=== PATIENT | male | born 1945 | race Two or more races ===

== ENCOUNTER 2022-01-04 22:06 | Inpatient (IN) | payer MEDICARE, MEDICAID ==
[~2022-01-04] VITALS: Ht 172.7 cm; Wt 61.9 kg
[2022-01-04] MEDS ORDERED: VANCOMYCIN 1G PREMIX 200 ML IV ONE (22:45)
[2022-01-04] MEDS ORDERED: SODIUM CHLORIDE 0.9% 1000ML BAG (SEPSIS BOLUS) IV ONE (22:45)
[2022-01-04] MEDS ORDERED: ACETAMINOPHEN 160MG/5ML UDC GT ONE (22:45)
[2022-01-04] MEDS ORDERED: PIPERACILLIN/TAZ 3.375G PREMIX 50 ML IV ONE (22:45)
[2022-01-04 23:12] LABS: HEMATOCRIT. 34.6 % (42.0-52.0); HEMOGLOBIN. 11.4 g/dL (14.0-18.0); MEAN CORPUSCULAR HEMOGLOBIN 29.9 pg (28.0-32.0); MEAN PLATELET VOLUME 9.2 fl (7.4-10.4); PLATELET 210 x1000/uL (130-400); RED CELL DISTRIBUTION WIDTH 15.6 % (11.6-14.6)
[2022-01-04 23:13] LABS: INR 1.1; PROTHROMBIN TIME 12.1 sec (9.6-11.0)
[2022-01-04 23:17] LABS: CHLORIDE 95 mEq/L (98-107)
[2022-01-04 23:26] LABS: CREATINE KINASE 304 IU/L (39-308)
[2022-01-04] MEDS ORDERED: ACETAMINOPHEN 650MG/20.3ML UDC GT NR (23:30)
[2022-01-05] VITALS (42 sets, daily range): BP systolic 64–130; BP diastolic 26–85
[2022-01-05] MEDS ORDERED: DILTIAZEM HCL 5MG/ML 5ML VIAL IV NR ×2 (00:15→01:15)
[2022-01-05 00:21] LABS: CLARITY URINE CLOUDY (CLEAR); COLOR URINE DARK YELLOW (YELLOW); KETONES URINE TRACE (NEGATIVE); LEUKOCYTE ESTERASE URINE 3+ (NEGATIVE); NITRITE URINE POSITIVE (NEGATIVE); OCCULT BLOOD URINE 1+ (NEGATIVE); PROTEIN URINE 1+ (NEGATIVE); SPECIFIC GRAVITY URINE 1.022 (1.005-1.030)
[2022-01-05] MEDS ORDERED: ONDANSETRON HCL 4MG/2ML INJ IV PRN (01:45)
[2022-01-05] MEDS ORDERED: ACETAMINOPHEN 650MG SUPP PR PRN (01:45)
[2022-01-05] MEDS: DEXT 5%/0.45% NACL 1000ML 1,000 ML IV SCH ×3 (01:45→21:45)
[2022-01-05] MEDS ORDERED: PHENYLEPHRINE 50 MG in DEXT 5% WATER 245 ML IV PRN (01:45)
[2022-01-05] MEDS ORDERED: PIPERACILLIN/TAZOBACTAM 3.375 G in DEXTROSE 5% WATER 50 ML IV SCH (01:45)
[2022-01-05 03:08] LABS: PLATELET ESTIMATE NORMAL
[2022-01-05] MEDS ORDERED: PIPERACILLIN/TAZOBACTAM 3.375G in DEXT 5% WATER 50ML IV SCH (06:00)
[2022-01-05] MEDS ORDERED: PIPERACILLIN/TAZ 3.375G PREMIX 50 ML IV NR (06:45)
[2022-01-05] MEDS ORDERED: DEXTROSE 50% WATER 50ML SYRINGE IV PRN (07:30)
[2022-01-05] MEDS ORDERED: DIGOXIN 500MCG/2ML AMP IV NR ×3 (10:15→13:00)
[2022-01-05] MEDS ORDERED: BLOOD SUGAR DIAGNOSTIC STRIP TEST SCH (11:30)
[2022-01-05] MEDS ORDERED: INSULIN LISPRO 100 UNITS/ML SUBCUT SCH (12:00)
[2022-01-05] MEDS: ENOXAPARIN 60MG/0.6ML SYR SUBCUT SCH (12:22)
[2022-01-05] MEDS: DILTIAZEM 125MG/125ML PMX 100 ML IV NR ×2 (12:43→22:03)
[2022-01-05] MEDS ORDERED: DIGOXIN 500MCG/2ML AMP IV PRN (13:00)
[2022-01-05] MEDS: PIPERACILLIN/TAZOBACTAM 3.375G in DEXT 5% WATER 50ML IV SCH ×4 (14:00→22:00)
[2022-01-05] MEDS ORDERED: NALOXONE HCL 0.4MG/ML VIAL IV PRN (16:00)
[2022-01-05] MEDS ORDERED: BRIM10DR2 EACHEYE (16:33)
[2022-01-05] MEDS ORDERED: FAMO-135 PO (16:33)
[2022-01-05] MEDS ORDERED: IPRA3AMP31 NEB (16:33)
[2022-01-05] MEDS ORDERED: HEPA100D37 SUBCUT (16:33)
[2022-01-05] MEDS ORDERED: DOCU-150 MT (16:33)
[2022-01-05] MEDS ORDERED: ASCO500C18 PO (16:33)
[2022-01-05] MEDS ORDERED: LISI2.5T47 MT (16:33)
[2022-01-05] MEDS ORDERED: ONDA4TAB50 MT (16:33)
[2022-01-05] MEDS ORDERED: CLON0.5T23 MT (16:33)
[2022-01-05] MEDS ORDERED: CHOL400D7 PEG (16:33)
[2022-01-05] MEDS ORDERED: QUET200T MT (16:33)
[2022-01-05] MEDS ORDERED: DILT60TA35 PO (16:33)
[2022-01-05] MEDS ORDERED: ZINC220C6 (16:33)
[2022-01-05] MEDS: BLOOD SUGAR DIAGNOSTIC STRIP TEST SCH (18:00)
[2022-01-05] MEDS: INSULIN LISPRO 100 UNITS/ML SUBCUT SCH (18:58)
[2022-01-05] MEDS: VANCOMYCIN 750MG PREMIX 150 ML IV SCH (19:22)
[2022-01-06] VITALS (96 sets, daily range): BP systolic 87–137; BP diastolic 43–99
[2022-01-06] MEDS: BLOOD SUGAR DIAGNOSTIC STRIP TEST SCH ×5 (00:38→23:48)
[2022-01-06] MEDS: ENOXAPARIN 60MG/0.6ML SYR SUBCUT SCH ×3 (00:56→23:48)
[2022-01-06] MEDS: VANCOMYCIN 750MG PREMIX 150 ML IV SCH ×2 (01:59→02:45)
[2022-01-06 05:31] LABS: HEMATOCRIT. 33.6 % (42.0-52.0); HEMOGLOBIN. 11.2 g/dL (14.0-18.0); MEAN CORPUSCULAR HEMOGLOBIN 30.3 pg (28.0-32.0); MEAN CORPUSCULAR VOLUME 90.7 fL (80.0-94.0); MEAN PLATELET VOLUME 9.3 fl (7.4-10.4); PLATELET 236 x1000/uL (130-400); RED CELL DISTRIBUTION WIDTH 15.5 % (11.6-14.6)
[2022-01-06] MEDS: INSULIN LISPRO 100 UNITS/ML SUBCUT SCH ×5 (05:45→23:46)
[2022-01-06 05:52] LABS: PHOSPHORUS 1.9 mg/dL (2.5-4.9)
[2022-01-06] MEDS: PIPERACILLIN/TAZOBACTAM 3.375G in DEXT 5% WATER 50ML IV SCH ×3 (05:54→21:05)
[2022-01-06 05:55] LABS: CHLORIDE 107 mEq/L (98-107)
[2022-01-06 06:24] LABS: PLATELET ESTIMATE NORMAL
[2022-01-06] MEDS: DILTIAZEM 125MG/125ML PMX 100 ML IV PRN ×2 (08:14→16:42)
[2022-01-06] MEDS: DEXT 5%/0.45% NACL 1000ML 1,000 ML IV SCH ×2 (08:14→16:45)
[2022-01-06] MEDS ORDERED: LIDOCAINE HCL 1% 30ML VIAL (10MG/ML) ONE (08:41)
[2022-01-06] MEDS: PHENYLEPHRINE 100 MG in DEXT 5% WATER 240 ML IV PRN (09:24)
[2022-01-06] MEDS: DILTIAZEM HCL 30MG TABLET PO SCH ×3 (12:24→23:47)
[2022-01-06] MEDS: VANCOMYCIN 1000MG/20ML ORAL SOLN PO SCH ×2 (15:05→23:47)
[2022-01-06] MEDS: PANTOPRAZOLE SODIUM 40 MG/VIAL IV SCH (21:05)
[2022-01-07] VITALS (99 sets, daily range): BP systolic 41–137; BP diastolic 22–96
[2022-01-07] MEDS: DEXT 5%/0.45% NACL 1000ML 1,000 ML IV SCH ×2 (03:47→11:23)
[2022-01-07] MEDS: MORPHINE SULFATE 2 MG/ML CPJ (NOT FOR IM USE) IV PRN (04:45)
[2022-01-07] MEDS: PIPERACILLIN/TAZOBACTAM 3.375G in DEXT 5% WATER 50ML IV SCH ×3 (05:05→21:02)
[2022-01-07] MEDS: DILTIAZEM HCL 30MG TABLET PO SCH ×4 (05:06→23:14)
[2022-01-07] MEDS: VANCOMYCIN 1000MG/20ML ORAL SOLN PO SCH ×4 (05:07→23:13)
[2022-01-07] MEDS: INSULIN LISPRO 100 UNITS/ML SUBCUT SCH ×4 (05:22→23:15)
[2022-01-07] MEDS: BLOOD SUGAR DIAGNOSTIC STRIP TEST SCH ×4 (05:22→23:15)
[2022-01-07 06:00] LABS: HEMATOCRIT. 31.8 % (42.0-52.0); HEMOGLOBIN. 10.7 g/dL (14.0-18.0); MEAN CORPUSCULAR HEMOGLOBIN 30.6 pg (28.0-32.0); MEAN CORPUSCULAR VOLUME 90.5 fL (80.0-94.0); MEAN PLATELET VOLUME 8.1 fl (7.4-10.4); PLATELET 235 x1000/uL (130-400); RED BLOOD CELL COUNT 3.51 mill/uL (4.7-6.1); RED CELL DISTRIBUTION WIDTH 15.6 % (11.6-14.6)
[2022-01-07 06:04] LABS: CHLORIDE 106 mEq/L (98-107)
[2022-01-07] MEDS ORDERED: POTASSIUM CHLORIDE 20MEQ/PACKET PO NR (06:30)
[2022-01-07] MEDS: PHENYLEPHRINE 100 MG in DEXT 5% WATER 240 ML IV PRN (07:57)
[2022-01-07] MEDS: DILTIAZEM 125MG/125ML PMX 100 ML IV PRN ×2 (07:58→18:07)
[2022-01-07] MEDS: PANTOPRAZOLE SODIUM 40 MG/VIAL IV SCH ×2 (08:13→21:02)
[2022-01-07] MEDS: CITRIC ACID/SODIUM CITRATE SOLN 15ML UDC PO SCH ×3 (08:13→18:08)
[2022-01-07 08:43] LABS: PLATELET ESTIMATE NORMAL
[2022-01-07] MEDS: METOCLOPRAMIDE HCL 10MG/2ML VIAL IV SCH ×3 (11:23→23:13)
[2022-01-07] MEDS: ENOXAPARIN 60MG/0.6ML SYR SUBCUT SCH ×2 (11:28→23:14)
[2022-01-08] VITALS (70 sets, daily range): BP systolic 70–152; BP diastolic 16–91
[2022-01-08] MEDS: DEXT 5%/0.45% NACL 1000ML 1,000 ML IV SCH (00:44)
[2022-01-08] MEDS: VANCOMYCIN 1000MG/20ML ORAL SOLN PO SCH ×3 (05:01→17:38)
[2022-01-08] MEDS: DILTIAZEM HCL 30MG TABLET PO SCH (05:01)
[2022-01-08 05:03] LABS: HEMATOCRIT. 31.4 % (42.0-52.0); HEMOGLOBIN. 10.6 g/dL (14.0-18.0); MEAN CORPUSCULAR HEMOGLOBIN 30.2 pg (28.0-32.0); MEAN CORPUSCULAR VOLUME 89.7 fL (80.0-94.0); MEAN PLATELET VOLUME 7.9 fl (7.4-10.4); PLATELET 232 x1000/uL (130-400); RED CELL DISTRIBUTION WIDTH 15.7 % (11.6-14.6)
[2022-01-08] MEDS: PIPERACILLIN/TAZOBACTAM 3.375G in DEXT 5% WATER 50ML IV SCH ×3 (05:03→21:18)
[2022-01-08] MEDS: METOCLOPRAMIDE HCL 10MG/2ML VIAL IV SCH ×3 (05:03→17:37)
[2022-01-08 05:19] LABS: CHLORIDE 106 mEq/L (98-107)
[2022-01-08 05:40] LABS: PHOSPHORUS 0.6 mg/dL (2.5-4.9)
[2022-01-08] MEDS: INSULIN LISPRO 100 UNITS/ML SUBCUT SCH ×3 (06:00→17:43)
[2022-01-08] MEDS: BLOOD SUGAR DIAGNOSTIC STRIP TEST SCH ×3 (06:02→17:44)
[2022-01-08] MEDS ORDERED: POTASSIUM CHLORIDE 20MEQ/PACKET PO NR (06:30)
[2022-01-08] MEDS: DEXT 5%/0.9% NACL 1,000 ML IV SCH (06:49)
[2022-01-08 07:07] LABS: PLATELET ESTIMATE NORMAL
[2022-01-08] MEDS ORDERED: POTASSIUM PHOS,M-BASIC-D-BASIC 30 MMOL in DEXT 5% WATER 500 ML IV NR (08:00)
[2022-01-08] MEDS: PANTOPRAZOLE SODIUM 40 MG/VIAL IV SCH ×2 (08:16→21:16)
[2022-01-08] MEDS: CITRIC ACID/SODIUM CITRATE SOLN 15ML UDC PO SCH ×3 (08:16→17:37)
[2022-01-08] MEDS ORDERED: DILTIAZEM HCL 30MG TABLET PO NR (08:45)
[2022-01-08] MEDS: ENOXAPARIN 60MG/0.6ML SYR SUBCUT SCH ×2 (09:51→21:17)
[2022-01-08 10:54] LABS: BG BASE EXCESS -4.8 mmol/L (-2.0-2.0); BG CARBOXYHEMOGLOBIN 0.4 % (0.5-1.5); BG DEOXYHEMOGLOBIN 10.6 % (0.0-5.0); BG HCO3 ACT 18.4 mmol/L (22.0-26.0); BG METHEMOGLOBIN 0.1 % (0.0-1.5); BG OXYGEN SATURATION 89.3 % (92.0-98.5); BG OXYHEMOGLOBIN 88.9 % (94.0-97.0); BG PCO2 28.7 mmHg (35.0-45.0); BG PH 7.424 (7.350-7.450); BG PO2 51.6 mmHg (75.0-100.0); BG SAMPLE SITE RIGHT RADIAL; BG TOTAL HEMOGLOBIN 12.2 g/dL (12.0-18.0); BG VENT MODE ROOM AIR
[2022-01-08] MEDS ORDERED: ENOXAPARIN 60MG/0.6ML SYR SUBCUT SCH (11:30)
[2022-01-08] MEDS: DILTIAZEM HCL 60MG TABLET PO SCH ×2 (12:26→17:37)
[2022-01-08] MEDS ORDERED: [UNRECOGNIZED DRUG - REMARK] XX SCH (14:00)
[2022-01-08] MEDS: METHYLPREDNISOLONE SOD SUCC 40 MG/ML VIAL IV SCH ×2 (14:07→21:16)
[2022-01-08] MEDS: IPRATROPIUM BROMIDE (0.02%) 0.5MG/2.5ML NEB HHN SCH ×2 (14:29→18:00)
[2022-01-08] MEDS: HALOPERIDOL LACTATE 5MG/ML VIAL IM PRN (18:03)
[2022-01-08] MEDS: MORPHINE SULFATE 2 MG/ML CPJ (NOT FOR IM USE) IV PRN (19:56)
[2022-01-08] MEDS: LORAZEPAM 0.5MG TABLET PO PRN (20:37)
[2022-01-08] MEDS ORDERED: FAMOTIDINE 20MG TABLET PO SCH (21:00)
[2022-01-09] VITALS (14 sets, daily range): BP systolic 80–181; BP diastolic 47–105
[2022-01-09] MEDS: DEXT 5%/0.9% NACL 1,000 ML IV SCH ×2 (00:04→15:02)
[2022-01-09] MEDS: VANCOMYCIN 1000MG/20ML ORAL SOLN PO SCH ×4 (00:07→18:56)
[2022-01-09] MEDS: METOCLOPRAMIDE HCL 10MG/2ML VIAL IV SCH ×4 (00:07→16:17)
[2022-01-09] MEDS: BLOOD SUGAR DIAGNOSTIC STRIP TEST SCH ×4 (00:19→18:38)
[2022-01-09] MEDS: DILTIAZEM HCL 60MG TABLET PO SCH ×4 (00:20→18:56)
[2022-01-09] MEDS: PIPERACILLIN/TAZOBACTAM 3.375G in DEXT 5% WATER 50ML IV SCH ×3 (06:14→22:10)
[2022-01-09] MEDS: METHYLPREDNISOLONE SOD SUCC 40 MG/ML VIAL IV SCH ×2 (06:15→15:02)
[2022-01-09] MEDS: INSULIN LISPRO 100 UNITS/ML SUBCUT SCH ×4 (06:18→18:57)
[2022-01-09 06:24] LABS: BASOPHILS % 0.2 % (0.0-2.0); EOSINOPHILS % 0.1 % (0.0-5.0); HEMATOCRIT. 33.2 % (42.0-52.0); HEMOGLOBIN. 11.1 g/dL (14.0-18.0); LYMPHOCYTES % 7.7 % (20.0-50.0); MEAN CORPUSCULAR HEMOGLOBIN 30.7 pg (28.0-32.0); MEAN CORPUSCULAR VOLUME 92.2 fL (80.0-94.0); MEAN PLATELET VOLUME 8.6 fl (7.4-10.4); MONOCYTES % 2.4 % (2.0-8.0); NEUTROPHILS % 89.6 % (40.0-76.0); PLATELET 226 x1000/uL (130-400); RED CELL DISTRIBUTION WIDTH 16.1 % (11.6-14.6)
[2022-01-09 06:32] LABS: CHLORIDE 106 mEq/L (98-107)
[2022-01-09 06:36] LABS: PHOSPHORUS 1.8 mg/dL (2.5-4.9)
[2022-01-09] MEDS: IPRATROPIUM BROMIDE (0.02%) 0.5MG/2.5ML NEB HHN SCH ×4 (08:45→20:47)
[2022-01-09] MEDS: LORAZEPAM 0.5MG TABLET PO PRN ×2 (08:47→16:17)
[2022-01-09] MEDS: CITRIC ACID/SODIUM CITRATE SOLN 15ML UDC PO SCH ×3 (08:47→18:55)
[2022-01-09] MEDS: PANTOPRAZOLE SODIUM 40 MG/VIAL IV SCH ×2 (08:47→21:58)
[2022-01-09] MEDS: ENOXAPARIN 60MG/0.6ML SYR SUBCUT SCH (08:48)
[2022-01-09] MEDS: HALOPERIDOL LACTATE 5MG/ML VIAL IM PRN (09:19)
[2022-01-09] MEDS ORDERED: SODIUM PHOS,M-BASIC-D-BASIC 20 MM in DEXT 5% WATER 243.3333 ML IV NR (13:00)
[2022-01-09] MEDS: ENOXAPARIN 80MG/0.8ML SYR SUBCUT SCH (21:58)
[2022-01-09] MEDS ORDERED: FUROSEMIDE 40MG/4ML VIAL IVP NR (22:15)
[2022-01-09] MEDS ORDERED: DIGOXIN 500MCG/2ML AMP IV NR (22:15)
[2022-01-10] VITALS (10 sets, daily range): BP systolic 99–156; BP diastolic 60–87
[2022-01-10] MEDS: METOCLOPRAMIDE HCL 10MG/2ML VIAL IV SCH ×4 (00:30→17:20)
[2022-01-10] MEDS: VANCOMYCIN 1000MG/20ML ORAL SOLN PO SCH ×4 (00:30→17:20)
[2022-01-10] MEDS: DILTIAZEM HCL 60MG TABLET PO SCH ×4 (00:30→17:19)
[2022-01-10] MEDS: BLOOD SUGAR DIAGNOSTIC STRIP TEST SCH ×4 (00:43→17:20)
[2022-01-10] MEDS ORDERED: METHYLPREDNISOLONE SOD SUCC 40 MG/ML VIAL IV SCH (01:00)
[2022-01-10] MEDS: INSULIN LISPRO 100 UNITS/ML SUBCUT SCH ×4 (01:00→17:21)
[2022-01-10] MEDS: IPRATROPIUM BROMIDE (0.02%) 0.5MG/2.5ML NEB HHN SCH ×4 (01:02→20:05)
[2022-01-10] MEDS: PIPERACILLIN/TAZOBACTAM 3.375G in DEXT 5% WATER 50ML IV SCH ×3 (05:35→22:13)
[2022-01-10 05:59] LABS: HEMATOCRIT. 32.7 % (42.0-52.0); HEMOGLOBIN. 10.9 g/dL (14.0-18.0); MEAN CORPUSCULAR HEMOGLOBIN 30.6 pg (28.0-32.0); MEAN CORPUSCULAR VOLUME 91.5 fL (80.0-94.0); MEAN PLATELET VOLUME 8.6 fl (7.4-10.4); PLATELET 257 x1000/uL (130-400); RED BLOOD CELL COUNT 3.57 mill/uL (4.7-6.1); RED CELL DISTRIBUTION WIDTH 15.7 % (11.6-14.6)
[2022-01-10 06:17] LABS: CHLORIDE 103 mEq/L (98-107)
[2022-01-10 06:26] LABS: PHOSPHORUS 1.6 mg/dL (2.5-4.9)
[2022-01-10] MEDS ORDERED: POTASSIUM CHLORIDE INJ 40 MEQ in DEXT 5% WATER 250 ML IV ONE (06:30)
[2022-01-10] MEDS: KCL 20MEQ/100ML X 2 FOR TOTAL KCL 40MEQ/200ML IV SCH ×4 (07:30→12:30)
[2022-01-10 07:46] LABS: PLATELET ESTIMATE NORMAL
[2022-01-10] MEDS: CITRIC ACID/SODIUM CITRATE SOLN 15ML UDC PO SCH ×3 (09:45→17:14)
[2022-01-10] MEDS: PANTOPRAZOLE SODIUM 40 MG/VIAL IV SCH ×2 (09:45→17:20)
[2022-01-10] MEDS: ENOXAPARIN 80MG/0.8ML SYR SUBCUT SCH (09:46)
[2022-01-10] MEDS ORDERED: POTASSIUM PHOS,M-BASIC-D-BASIC 30 MMOL in DEXT 5% WATER 500 ML IV NR (12:00)
[2022-01-10] MEDS: MAGNESIUM 2 G PREMIX 50 ML IV NR ×2 (12:30→17:14)
[2022-01-10] MEDS: ASPIRIN 81MG EC TABLET PO SCH (12:39)
[2022-01-10] MEDS: QUETIAPINE FUMARATE 25MG TABLET PO SCH (22:13)
[2022-01-11] VITALS (15 sets, daily range): BP systolic 85–159; BP diastolic 46–93
[2022-01-11] MEDS: METOCLOPRAMIDE HCL 10MG/2ML VIAL IV SCH ×5 (00:57→23:46)
[2022-01-11] MEDS: VANCOMYCIN 1000MG/20ML ORAL SOLN PO SCH ×5 (00:59→23:48)
[2022-01-11] MEDS: BLOOD SUGAR DIAGNOSTIC STRIP TEST SCH ×5 (01:09→23:49)
[2022-01-11] MEDS: INSULIN LISPRO 100 UNITS/ML SUBCUT SCH ×4 (01:24→17:25)
[2022-01-11] MEDS: DILTIAZEM HCL 60MG TABLET PO SCH ×5 (01:29→23:50)
[2022-01-11] MEDS: IPRATROPIUM BROMIDE (0.02%) 0.5MG/2.5ML NEB HHN SCH ×4 (03:11→21:12)
[2022-01-11 06:17] LABS: CHLORIDE 103 mEq/L (98-107)
[2022-01-11 06:21] LABS: HEMATOCRIT. 35.5 % (42.0-52.0); HEMOGLOBIN. 11.9 g/dL (14.0-18.0); MEAN CORPUSCULAR HEMOGLOBIN 30.6 pg (28.0-32.0); MEAN CORPUSCULAR VOLUME 91.1 fL (80.0-94.0); MEAN PLATELET VOLUME 7.9 fl (7.4-10.4); PLATELET 282 x1000/uL (130-400); RED CELL DISTRIBUTION WIDTH 15.8 % (11.6-14.6)
[2022-01-11 06:28] LABS: PHOSPHORUS 1.5 mg/dL (2.5-4.9)
[2022-01-11] MEDS: PIPERACILLIN/TAZOBACTAM 3.375G in DEXT 5% WATER 50ML IV SCH ×3 (06:36→21:10)
[2022-01-11] MEDS: PANTOPRAZOLE SODIUM 40 MG/VIAL IV SCH ×2 (08:26→21:10)
[2022-01-11] MEDS: CITRIC ACID/SODIUM CITRATE SOLN 15ML UDC PO SCH ×3 (08:26→17:22)
[2022-01-11] MEDS: ASPIRIN 81MG EC TABLET PO SCH (08:26)
[2022-01-11] MEDS: ENOXAPARIN 40MG/0.4ML SYR SUBCUT SCH (08:26)
[2022-01-11] MEDS: QUETIAPINE FUMARATE 25MG TABLET PO SCH ×2 (08:31→21:10)
[2022-01-11 10:49] LABS: PLATELET ESTIMATE NORMAL
[2022-01-11] MEDS ORDERED: MIDODRINE HCL 2.5MG TABLET PO SCH (11:30)
[2022-01-11] MEDS ORDERED: POTASSIUM PHOS,M-BASIC-D-BASIC 20 MMOL in DEXT 5% WATER 243.3333 ML IV NR (12:00)
[2022-01-11] MEDS: METHYLPREDNISOLONE SOD SUCC 40 MG/ML VIAL IV SCH (12:07)
[2022-01-11] MEDS: MIDODRINE HCL 2.5MG TABLET PO SCH ×2 (12:08→17:24)
[2022-01-12] VITALS (12 sets, daily range): BP systolic 83–117; BP diastolic 47–71
[2022-01-12] MEDS: IPRATROPIUM BROMIDE (0.02%) 0.5MG/2.5ML NEB HHN SCH ×4 (00:22→21:10)
[2022-01-12] MEDS: METOCLOPRAMIDE HCL 10MG/2ML VIAL IV SCH ×3 (05:45→16:50)
[2022-01-12] MEDS: VANCOMYCIN 1000MG/20ML ORAL SOLN PO SCH ×3 (05:46→18:00)
[2022-01-12] MEDS: BLOOD SUGAR DIAGNOSTIC STRIP TEST SCH ×3 (05:46→16:54)
[2022-01-12] MEDS: PIPERACILLIN/TAZOBACTAM 3.375G in DEXT 5% WATER 50ML IV SCH ×3 (05:46→21:46)
[2022-01-12] MEDS: DILTIAZEM HCL 60MG TABLET PO SCH ×3 (05:48→16:50)
[2022-01-12] MEDS: INSULIN LISPRO 100 UNITS/ML SUBCUT SCH ×4 (05:48→17:22)
[2022-01-12 06:39] LABS: HEMATOCRIT. 32.3 % (42.0-52.0); HEMOGLOBIN. 10.7 g/dL (14.0-18.0); MEAN CORPUSCULAR HEMOGLOBIN 30.5 pg (28.0-32.0); MEAN CORPUSCULAR VOLUME 92.1 fL (80.0-94.0); MEAN PLATELET VOLUME 7.9 fl (7.4-10.4); PLATELET 238 x1000/uL (130-400); RED BLOOD CELL COUNT 3.51 mill/uL (4.7-6.1); RED CELL DISTRIBUTION WIDTH 15.8 % (11.6-14.6)
[2022-01-12 07:09] LABS: CHLORIDE 101 mEq/L (98-107)
[2022-01-12] MEDS ORDERED: SODIUM CHLORIDE 0.9% 500 ML IV ONE (07:15)
[2022-01-12 07:25] LABS: PHOSPHORUS 2.4 mg/dL (2.5-4.9)
[2022-01-12] MEDS: ENOXAPARIN 40MG/0.4ML SYR SUBCUT SCH (09:05)
[2022-01-12] MEDS: PANTOPRAZOLE SODIUM 40 MG/VIAL IV SCH ×2 (09:05→21:47)
[2022-01-12] MEDS: CITRIC ACID/SODIUM CITRATE SOLN 15ML UDC PO SCH ×3 (09:05→16:50)
[2022-01-12] MEDS: QUETIAPINE FUMARATE 25MG TABLET PO SCH ×2 (09:06→21:47)
[2022-01-12] MEDS: MIDODRINE HCL 2.5MG TABLET PO SCH ×3 (09:06→16:49)
[2022-01-12] MEDS: ASPIRIN 81MG EC TABLET PO SCH (09:06)
[2022-01-12 09:22] LABS: PLATELET ESTIMATE NORMAL
[2022-01-12] MEDS: METHYLPREDNISOLONE SOD SUCC 40 MG/ML VIAL IV SCH (13:54)
[2022-01-13] VITALS (15 sets, daily range): BP systolic 93–146; BP diastolic 48–76
[2022-01-13] MEDS: METOCLOPRAMIDE HCL 10MG/2ML VIAL IV SCH ×4 (00:26→17:36)
[2022-01-13] MEDS: VANCOMYCIN 1000MG/20ML ORAL SOLN PO SCH ×4 (00:26→17:37)
[2022-01-13] MEDS: BLOOD SUGAR DIAGNOSTIC STRIP TEST SCH ×5 (00:27→23:55)
[2022-01-13] MEDS: DILTIAZEM HCL 60MG TABLET PO SCH ×2 (00:32→06:00)
[2022-01-13] MEDS: INSULIN LISPRO 100 UNITS/ML SUBCUT SCH ×4 (00:39→17:35)
[2022-01-13] MEDS: IPRATROPIUM BROMIDE (0.02%) 0.5MG/2.5ML NEB HHN SCH ×4 (01:06→20:49)
[2022-01-13 06:43] LABS: HEMATOCRIT. 32.6 % (42.0-52.0); HEMOGLOBIN. 10.7 g/dL (14.0-18.0); MEAN CORPUSCULAR HEMOGLOBIN 30.3 pg (28.0-32.0); MEAN CORPUSCULAR VOLUME 92.6 fL (80.0-94.0); MEAN PLATELET VOLUME 8.1 fl (7.4-10.4); PLATELET 298 x1000/uL (130-400); RED BLOOD CELL COUNT 3.52 mill/uL (4.7-6.1); RED CELL DISTRIBUTION WIDTH 16.4 % (11.6-14.6)
[2022-01-13 06:53] LABS: CHLORIDE 105 mEq/L (98-107)
[2022-01-13] MEDS: PANTOPRAZOLE SODIUM 40 MG/VIAL IV SCH ×2 (08:46→21:35)
[2022-01-13] MEDS: PIPERACILLIN/TAZOBACTAM 3.375G in DEXT 5% WATER 50ML IV SCH ×3 (08:46→21:35)
[2022-01-13] MEDS: ENOXAPARIN 40MG/0.4ML SYR SUBCUT SCH (08:46)
[2022-01-13] MEDS: CITRIC ACID/SODIUM CITRATE SOLN 15ML UDC PO SCH ×3 (08:46→17:37)
[2022-01-13] MEDS: QUETIAPINE FUMARATE 25MG TABLET PO SCH ×2 (08:47→21:35)
[2022-01-13] MEDS: ASPIRIN 81MG EC TABLET PO SCH (08:47)
[2022-01-13] MEDS: MIDODRINE HCL 2.5MG TABLET PO SCH ×3 (08:47→17:34)
[2022-01-13 11:29] LABS: PLATELET ESTIMATE NORMAL
[2022-01-13] MEDS: METHYLPREDNISOLONE SOD SUCC 40 MG/ML VIAL IV SCH (12:41)
[2022-01-13] MEDS: DILTIAZEM HCL 30MG TABLET PO SCH ×2 (12:45→17:36)
[2022-01-14] VITALS (19 sets, daily range): BP systolic 107–141; BP diastolic 57–88
[2022-01-14] MEDS: VANCOMYCIN 1000MG/20ML ORAL SOLN PO SCH ×4 (00:22→17:43)
[2022-01-14] MEDS: METOCLOPRAMIDE HCL 10MG/2ML VIAL IV SCH ×4 (00:22→17:42)
[2022-01-14] MEDS: DILTIAZEM HCL 30MG TABLET PO SCH ×4 (00:23→17:45)
[2022-01-14] MEDS: INSULIN LISPRO 100 UNITS/ML SUBCUT SCH ×4 (00:24→17:44)
[2022-01-14] MEDS: IPRATROPIUM BROMIDE (0.02%) 0.5MG/2.5ML NEB HHN SCH ×4 (01:09→22:17)
[2022-01-14 06:11] LABS: CHLORIDE 105 mEq/L (98-107)
[2022-01-14] MEDS: BLOOD SUGAR DIAGNOSTIC STRIP TEST SCH ×3 (06:28→17:28)
[2022-01-14] MEDS: PIPERACILLIN/TAZOBACTAM 3.375G in DEXT 5% WATER 50ML IV SCH ×3 (06:42→22:49)
[2022-01-14 06:59] LABS: HEMATOCRIT. 35.3 % (42.0-52.0); HEMOGLOBIN. 11.5 g/dL (14.0-18.0); MEAN CORPUSCULAR HEMOGLOBIN 30.1 pg (28.0-32.0); MEAN CORPUSCULAR VOLUME 92.1 fL (80.0-94.0); MEAN PLATELET VOLUME 7.8 fl (7.4-10.4); PLATELET 360 x1000/uL (130-400); RED BLOOD CELL COUNT 3.83 mill/uL (4.7-6.1); RED CELL DISTRIBUTION WIDTH 16.1 % (11.6-14.6)
[2022-01-14] MEDS: CITRIC ACID/SODIUM CITRATE SOLN 15ML UDC PO SCH ×3 (09:32→17:42)
[2022-01-14] MEDS: PANTOPRAZOLE SODIUM 40 MG/VIAL IV SCH ×2 (09:33→21:23)
[2022-01-14] MEDS: ASPIRIN 81MG EC TABLET PO SCH (09:33)
[2022-01-14] MEDS: ENOXAPARIN 40MG/0.4ML SYR SUBCUT SCH (09:33)
[2022-01-14] MEDS: QUETIAPINE FUMARATE 25MG TABLET PO SCH ×2 (09:36→21:23)
[2022-01-14] MEDS: MIDODRINE HCL 2.5MG TABLET PO SCH ×3 (09:36→17:45)
[2022-01-14 09:41] LABS: PLATELET ESTIMATE NORMAL
[2022-01-14] MEDS: METHYLPREDNISOLONE SOD SUCC 40 MG/ML VIAL IV SCH (13:33)
[2022-01-14] MEDS ORDERED: [UNRECOGNIZED DRUG - REMARK] XX SCH (14:15)
[2022-01-15 00:02] VITALS: BP 133/87
[2022-01-15] MEDS: METOCLOPRAMIDE HCL 10MG/2ML VIAL IV SCH ×2 (00:22→05:38)
[2022-01-15] MEDS: DILTIAZEM HCL 30MG TABLET PO SCH ×2 (00:25→05:40)
[2022-01-15] MEDS: VANCOMYCIN 1000MG/20ML ORAL SOLN PO SCH ×2 (00:30→05:41)
[2022-01-15] MEDS: BLOOD SUGAR DIAGNOSTIC STRIP TEST SCH ×2 (00:38→06:02)
[2022-01-15] MEDS: INSULIN LISPRO 100 UNITS/ML SUBCUT SCH ×2 (00:52→06:17)
[2022-01-15] MEDS: IPRATROPIUM BROMIDE (0.02%) 0.5MG/2.5ML NEB HHN SCH (01:50)
[2022-01-15 02:02] VITALS: BP 118/61
[2022-01-15 04:02] VITALS: BP 120/69
[2022-01-15] MEDS: PIPERACILLIN/TAZOBACTAM 3.375G in DEXT 5% WATER 50ML IV SCH (05:38)
[2022-01-15 06:02] VITALS: BP 146/74
[2022-01-15 07:10] LABS: HEMATOCRIT. 36.4 % (42.0-52.0); HEMOGLOBIN. 11.9 g/dL (14.0-18.0); MEAN CORPUSCULAR HEMOGLOBIN 30.1 pg (28.0-32.0); MEAN CORPUSCULAR VOLUME 92.2 fL (80.0-94.0); MEAN PLATELET VOLUME 7.4 fl (7.4-10.4); PLATELET 410 x1000/uL (130-400); RED BLOOD CELL COUNT 3.95 mill/uL (4.7-6.1); RED CELL DISTRIBUTION WIDTH 15.6 % (11.6-14.6)
[2022-01-15 07:25] LABS: CHLORIDE 97 mEq/L (98-107)
[2022-01-15 07:31] LABS: PHOSPHORUS 3.1 mg/dL (2.5-4.9)
[2022-01-15 08:02] VITALS: BP 136/79
[2022-01-15] MEDS: CITRIC ACID/SODIUM CITRATE SOLN 15ML UDC PO SCH (09:00)
[2022-01-15] MEDS: QUETIAPINE FUMARATE 25MG TABLET PO SCH (09:00)
[2022-01-15] MEDS: ENOXAPARIN 40MG/0.4ML SYR SUBCUT SCH (09:00)
[2022-01-15] MEDS: PANTOPRAZOLE SODIUM 40 MG/VIAL IV SCH (09:11)
[2022-01-15] MEDS: ASPIRIN 81MG EC TABLET PO SCH (09:12)
[2022-01-15] MEDS: MIDODRINE HCL 2.5MG TABLET PO SCH (09:12)
[2022-01-15 09:17] LABS: PLATELET ESTIMATE SLIGHTLY INCREASED
== END 2022-01-15 12:21 | DRG 871 ==
LOC: ER 22:06 → MICUSO 01-05 00:03 → EDBEDREQ 01-05 00:14 → MICUSO 01-05 13:24 → 5EST 01-08 16:58
PROVIDERS: ADMIT Internal Medicine Nephrology; ATTEND Internal Medicine
PROC: 02HV33Z Insertion of Infusion Device into Superior Vena Cava, Percutaneous Approach (ICD-10-PCS; principal; 2022-01-06)
PROC: B548ZZA Ultrasonography of Superior Vena Cava, Guidance (ICD-10-PCS; 2022-01-06)
DX: A41.51 Sepsis due to Escherichia coli [E. coli] (principal); E43 Unspecified severe protein-calorie malnutrition; G92.8 Other toxic encephalopathy; J18.9 Pneumonia, unspecified organism; R65.21 Severe sepsis with septic shock; E87.2 Acidosis; N39.0 Urinary tract infection, site not specified; N17.9 Acute kidney failure, unspecified; E87.1 Hypo-osmolality and hyponatremia; A04.72 Enterocolitis due to Clostridium difficile, not specified as recurrent; I48.20 Chronic atrial fibrillation, unspecified; K56.7 Ileus, unspecified; Z20.822 Contact with and (suspected) exposure to COVID-19; F41.9 Anxiety disorder, unspecified; I11.0 Hypertensive heart disease with heart failure; I50.9 Heart failure, unspecified; D72.825 Bandemia; E87.8 Other disorders of electrolyte and fluid balance, not elsewhere classified; D64.9 Anemia, unspecified; E11.649 Type 2 diabetes mellitus with hypoglycemia without coma; N40.0 Benign prostatic hyperplasia without lower urinary tract symptoms; F03.90 Unspecified dementia, unspecified severity, without behavioral disturbance, psychotic disturbance, mood disturbance, and anxiety; B96.89 Other specified bacterial agents as the cause of diseases classified elsewhere; Z68.20 Body mass index [BMI] 20.0-20.9, adult
CPT/HCPCS: 36415; 36573; 36600; 71045; 74018; 80048; 80053; 80076; 81003; 82375; 82550; 82805; 82962; 83036; 83605; 83735; 83880; 84100; 84145; 84484; 85025; 87077; 87186; 87426; 87493; 87804; 93005; 93306; 93970; 94640; 94664; 99291; A6261; C1725; C9113; J1160; J1630; J1650; J1815; J1940; J2270; J2370; J2405; J2543; J2765; J2920; J3370; J3475; J3480; J3490; J7030; J7042; J7060; A4315

== ENCOUNTER 2022-04-14 13:46 | Inpatient (IN) | payer MEDICARE, MEDICAID ==
[~2022-04-14] VITALS: Ht 172.7 cm; Wt 52.2 kg
[~2022-04-14 13:46] MED LIST: ASCO500C18 PO; BRIM10DR2 EACHEYE; CHOL400D7 PEG; CLON0.5T23 MT; DILT60TA35 PO; DOCU-150 MT; FAMO-135 PO; HEPA100D37 SUBCUT; IPRA3AMP31 NEB; LISI2.5T47 MT; ONDA4TAB50 MT; QUET200T MT; ZINC220C6
[2022-04-14] MEDS ORDERED: SODIUM CHLORIDE 0.9% 1000ML BAG (SEPSIS BOLUS) IV ONE (14:15)
[2022-04-14] MEDS ORDERED: LORAZEPAM 2MG/ML CPJ IM ONE ×2 (14:30→15:30)
[2022-04-14 16:05] LABS: CLARITY URINE CLEAR (CLEAR); COLOR URINE YELLOW (YELLOW); KETONES URINE 1+ (NEGATIVE); LEUKOCYTE ESTERASE URINE 3+ (NEGATIVE); NITRITE URINE NEGATIVE (NEGATIVE); OCCULT BLOOD URINE NEGATIVE (NEGATIVE); PROTEIN URINE TRACE (NEGATIVE); SPECIFIC GRAVITY URINE 1.015 (1.005-1.030); UROBILINOGEN URINE 0.2 E.U./dL (0.2-1.0)
[2022-04-14 16:18] LABS: BASOPHILS % 0.3 % (0.0-2.0); EOSINOPHILS % 0.8 % (0.0-5.0); HEMATOCRIT. 36.8 % (42.0-52.0); HEMOGLOBIN. 12.4 g/dL (14.0-18.0); MEAN CORPUSCULAR HEMOGLOBIN 30.4 pg (28.0-32.0); MEAN CORPUSCULAR VOLUME 90.1 fL (80.0-94.0); MEAN PLATELET VOLUME 7.4 fl (7.4-10.4); NEUTROPHILS % 79.9 % (40.0-76.0); PLATELET 349 x1000/uL (130-400); RED BLOOD CELL COUNT 4.09 mill/uL (4.7-6.1); RED CELL DISTRIBUTION WIDTH 14.7 % (11.6-14.6)
[2022-04-14 16:27] LABS: INR 1.1; PARTIAL THROMBOPLASTIN TIME 34.2 sec (23.4-31.0); PROTHROMBIN TIME 11.6 sec (9.6-11.0)
[2022-04-14 16:30] LABS: CHLORIDE 101 mEq/L (98-107)
[2022-04-14] MEDS ORDERED: DEXTROSE 50% WATER 50ML SYRINGE IV ONE (17:00)
[2022-04-14] MEDS ORDERED: VANCOMYCIN 1G PREMIX 200 ML IV ONE (17:00)
[2022-04-14] MEDS ORDERED: PIPERACILLIN/TAZ 3.375G PREMIX 50 ML IV ONE (17:00)
[2022-04-15] VITALS (8 sets, daily range): BP systolic 110–129; BP diastolic 63–87
[2022-04-15] MEDS ORDERED: DEXTROSE 50% WATER 50ML SYRINGE IV ONE (00:30)
[2022-04-15] MEDS ORDERED: DEXTROSE 10% WATER 500ML IV SCH (04:00)
[2022-04-15] MEDS: BLOOD SUGAR DIAGNOSTIC STRIP TEST SCH ×7 (04:45→21:48)
[2022-04-15] MEDS: RISPERIDONE 0.5MG TABLET GT SCH ×2 (08:35→22:02)
[2022-04-15] MEDS ORDERED: IPRATROPIUM/ALBUTEROL 0.5-3(2.5)MG/3ML NEB HHN PRN (10:00)
[2022-04-15] MEDS ORDERED: HYDROCODONE/ACETAMINOPHEN 5/325MG TABLET PO PRN (10:00)
[2022-04-15] MEDS ORDERED: NALOXONE HCL 0.4MG/ML VIAL IV PRN (10:15)
[2022-04-15] MEDS ORDERED: PIPERACILLIN/TAZOBACTAM 3.375 G in DEXTROSE 5% WATER 50 ML IV SCH (10:30)
[2022-04-15] MEDS ORDERED: DEXTROSE 5% WATER 1,000 ML IV SCH (12:00)
[2022-04-15] MEDS: DEXTROSE 5% WATER 500 ML IV SCH ×2 (12:00→22:03)
[2022-04-15] MEDS: PIPERACILLIN/TAZOBACTAM 3.375 G in DEXTROSE 5% WATER 50 ML IV SCH ×2 (13:10→22:02)
[2022-04-15] MEDS: FAMOTIDINE 20MG TABLET PO SCH (13:12)
[2022-04-15] MEDS ORDERED: MORPHINE SULFATE 4 MG/ML CPJ (NOT FOR IM USE) IV NR (15:30)
[2022-04-15] MEDS ORDERED: GADOTERATE MEGLUMINE 5 MMOL/10 ML VIAL IV ONE (19:40)
[2022-04-16] VITALS (11 sets, daily range): BP systolic 101–132; BP diastolic 58–96
[2022-04-16] MEDS: PIPERACILLIN/TAZOBACTAM 3.375 G in DEXTROSE 5% WATER 50 ML IV SCH ×3 (05:10→21:44)
[2022-04-16] MEDS: BLOOD SUGAR DIAGNOSTIC STRIP TEST SCH ×4 (07:30→21:44)
[2022-04-16] MEDS: THIAMINE HCL 100MG TABLET PO SCH (09:09)
[2022-04-16] MEDS: FAMOTIDINE 20MG TABLET PO SCH (09:09)
[2022-04-16] MEDS: RISPERIDONE 0.5MG TABLET GT SCH ×2 (09:09→21:43)
[2022-04-16] MEDS: MULTIVITAMINS,THER W-MINERALS TABLET PO SCH (09:09)
[2022-04-16] MEDS: ACETAMINOPHEN 650MG/20.3ML UDC PO PRN (09:10)
[2022-04-16] MEDS: DEXTROSE 5% WATER 500 ML IV SCH (09:22)
[2022-04-16 15:55] LABS: CHLORIDE 103 mEq/L (98-107)
[2022-04-16 18:01] LABS: HEMATOCRIT 31.8 % (42.0-52.0); HEMOGLOBIN 10.7 g/dL (14.0-18.0); MEAN CORPUSCULAR HEMOGLOBIN 30.3 pg (28.0-32.0); MEAN CORPUSCULAR VOLUME 90.2 fL (80.0-94.0); PLATELET 323 x1000/uL (130-400); RED BLOOD CELL COUNT 3.53 mill/uL (4.7-6.1); RED CELL DISTRIBUTION WIDTH 14.8 % (11.6-14.6)
[2022-04-16 18:20] LABS: CHLORIDE 103 mEq/L (98-107)
[2022-04-17] VITALS (11 sets, daily range): BP systolic 81–144; BP diastolic 51–101
[2022-04-17] MEDS: ACETAMINOPHEN 650MG/20.3ML UDC PO PRN (00:38)
[2022-04-17] MEDS: PIPERACILLIN/TAZOBACTAM 3.375 G in DEXTROSE 5% WATER 50 ML IV SCH ×3 (05:53→21:21)
[2022-04-17] MEDS: BLOOD SUGAR DIAGNOSTIC STRIP TEST SCH ×4 (07:30→21:21)
[2022-04-17] MEDS: FAMOTIDINE 20MG TABLET PO SCH (08:45)
[2022-04-17] MEDS: MULTIVITAMINS,THER W-MINERALS TABLET PO SCH (08:45)
[2022-04-17] MEDS: RISPERIDONE 0.5MG TABLET GT SCH ×2 (08:45→21:21)
[2022-04-17] MEDS: THIAMINE HCL 100MG TABLET PO SCH (08:45)
[2022-04-17] MEDS ORDERED: DILTIAZEM HCL 5MG/ML 5ML VIAL IV SCH (09:00)
[2022-04-17] MEDS ORDERED: DILTIAZEM HCL 60MG TABLET PO SCH (12:00)
[2022-04-17] MEDS ORDERED: AMIODARONE HCL 900 MG in DEXT 5% WATER 482 ML IV PRN (12:00)
[2022-04-17] MEDS ORDERED: AMIODARONE HCL 150 MG in DEXT 5% WATER 100 ML IV NR (12:15)
[2022-04-17] MEDS ORDERED: SODIUM CHLORIDE 0.9% 250 ML IV NR (13:15)
[2022-04-17] MEDS ORDERED: SODIUM CHLORIDE 0.9% 1000ML BAG (SEPSIS BOLUS) IV ONE (13:15)
[2022-04-17] MEDS: DILTIAZEM HCL 30MG TABLET PO SCH (18:00)
[2022-04-18] VITALS (11 sets, daily range): BP systolic 97–117; BP diastolic 47–75
[2022-04-18] MEDS: DILTIAZEM HCL 30MG TABLET PO SCH ×4 (05:51→18:00)
[2022-04-18] MEDS: PIPERACILLIN/TAZOBACTAM 3.375 G in DEXTROSE 5% WATER 50 ML IV SCH ×3 (05:52→22:23)
[2022-04-18 06:26] LABS: HEMATOCRIT. 28.8 % (42.0-52.0); HEMOGLOBIN. 9.9 g/dL (14.0-18.0); MEAN CORPUSCULAR HEMOGLOBIN 30.9 pg (28.0-32.0); MEAN CORPUSCULAR VOLUME 90.2 fL (80.0-94.0); MEAN PLATELET VOLUME 7.8 fl (7.4-10.4); PLATELET 247 x1000/uL (130-400); RED CELL DISTRIBUTION WIDTH 14.9 % (11.6-14.6)
[2022-04-18 06:51] LABS: CHLORIDE 103 mEq/L (98-107)
[2022-04-18] MEDS: BLOOD SUGAR DIAGNOSTIC STRIP TEST SCH ×4 (07:30→21:00)
[2022-04-18] MEDS: MULTIVITAMINS,THER W-MINERALS TABLET PO SCH (08:40)
[2022-04-18] MEDS: RISPERIDONE 0.5MG TABLET GT SCH ×2 (08:40→23:23)
[2022-04-18] MEDS: FAMOTIDINE 20MG TABLET PO SCH (08:40)
[2022-04-18] MEDS: THIAMINE HCL 100MG TABLET PO SCH (08:40)
[2022-04-18] MEDS ORDERED: LISINOPRIL 2.5MG TABLET PO SCH (09:00)
[2022-04-18] MEDS: AMIODARONE HCL 200 MG TABLET PO SCH (22:23)
[2022-04-18 22:53] LABS: PLATELET ESTIMATE NORMAL
[2022-04-19] VITALS (12 sets, daily range): BP systolic 94–115; BP diastolic 57–74
[2022-04-19] MEDS: DILTIAZEM HCL 30MG TABLET PO SCH ×4 (06:00→18:15)
[2022-04-19] MEDS: PIPERACILLIN/TAZOBACTAM 3.375 G in DEXTROSE 5% WATER 50 ML IV SCH ×3 (06:00→21:28)
[2022-04-19 06:45] LABS: BASOPHILS % 0.3 % (0.0-2.0); EOSINOPHILS % 5.8 % (0.0-5.0); HEMATOCRIT. 29.3 % (42.0-52.0); LYMPHOCYTES % 10.6 % (20.0-50.0); MEAN CORPUSCULAR VOLUME 90.5 fL (80.0-94.0); NEUTROPHILS % 76.3 % (40.0-76.0); PLATELET 249 x1000/uL (130-400); RED BLOOD CELL COUNT 3.23 mill/uL (4.7-6.1)
[2022-04-19] MEDS: BLOOD SUGAR DIAGNOSTIC STRIP TEST SCH ×4 (07:30→21:00)
[2022-04-19 08:44] LABS: CHLORIDE 103 mEq/L (98-107)
[2022-04-19] MEDS: THIAMINE HCL 100MG TABLET PO SCH (08:58)
[2022-04-19] MEDS: AMIODARONE HCL 200 MG TABLET PO SCH ×2 (08:58→20:04)
[2022-04-19] MEDS: MULTIVITAMINS,THER W-MINERALS TABLET PO SCH (08:58)
[2022-04-19] MEDS: RISPERIDONE 0.5MG TABLET GT SCH ×2 (08:58→20:04)
[2022-04-19] MEDS: FAMOTIDINE 20MG TABLET PO SCH (08:58)
[2022-04-20] VITALS (8 sets, daily range): BP systolic 95–126; BP diastolic 53–79
[2022-04-20] MEDS: PIPERACILLIN/TAZOBACTAM 3.375 G in DEXTROSE 5% WATER 50 ML IV SCH (05:18)
[2022-04-20] MEDS: DILTIAZEM HCL 30MG TABLET PO SCH ×5 (05:21→23:57)
[2022-04-20] MEDS: AMIODARONE HCL 200 MG TABLET PO SCH (09:06)
[2022-04-20] MEDS: RISPERIDONE 0.5MG TABLET GT SCH ×2 (09:06→21:06)
[2022-04-20] MEDS: FAMOTIDINE 20MG TABLET PO SCH (09:06)
[2022-04-20] MEDS: THIAMINE HCL 100MG TABLET PO SCH (09:06)
[2022-04-20] MEDS: MULTIVITAMINS,THER W-MINERALS TABLET PO SCH (09:06)
[2022-04-20] MEDS: BLOOD SUGAR DIAGNOSTIC STRIP TEST SCH ×4 (09:21→21:00)
[2022-04-21] VITALS (7 sets, daily range): BP systolic 111–124; BP diastolic 65–78
[2022-04-21] MEDS: DILTIAZEM HCL 30MG TABLET PO SCH ×3 (05:19→18:00)
[2022-04-21] MEDS: MULTIVITAMINS,THER W-MINERALS TABLET PO SCH (08:28)
[2022-04-21] MEDS: RISPERIDONE 0.5MG TABLET GT SCH ×2 (08:28→23:07)
[2022-04-21] MEDS: THIAMINE HCL 100MG TABLET PO SCH (08:28)
[2022-04-21] MEDS: BLOOD SUGAR DIAGNOSTIC STRIP TEST SCH ×4 (08:28→21:00)
[2022-04-21] MEDS: AMIODARONE HCL 200 MG TABLET PO SCH (08:28)
[2022-04-21] MEDS: FAMOTIDINE 20MG TABLET PO SCH (08:28)
[2022-04-21] MEDS ORDERED: DEXTROSE 50% WATER 50ML SYRINGE IV PRN (20:45)
[2022-04-21] MEDS: INSULIN LISPRO 100 UNITS/ML SUBCUT SCH (21:00)
[2022-04-22 00:33] VITALS: BP 126/68
[2022-04-22] MEDS: DILTIAZEM HCL 30MG TABLET PO SCH ×3 (01:58→12:00)
[2022-04-22] MEDS: BLOOD SUGAR DIAGNOSTIC STRIP TEST SCH ×3 (07:56→17:26)
[2022-04-22 08:00] VITALS: BP 122/82
[2022-04-22] MEDS: THIAMINE HCL 100MG TABLET PO SCH (08:15)
[2022-04-22] MEDS: MULTIVITAMINS,THER W-MINERALS TABLET PO SCH (08:15)
[2022-04-22] MEDS: RISPERIDONE 0.5MG TABLET GT SCH (08:15)
[2022-04-22] MEDS: FAMOTIDINE 20MG TABLET PO SCH (08:15)
[2022-04-22] MEDS: AMIODARONE HCL 200 MG TABLET PO SCH (08:21)
[2022-04-22] MEDS: INSULIN LISPRO 100 UNITS/ML SUBCUT SCH ×2 (08:37→12:50)
[2022-04-22 12:00] VITALS: BP 99/53
[2022-04-22 13:34] LABS: HEMATOCRIT 31.2 % (42.0-52.0); HEMOGLOBIN 10.8 g/dL (14.0-18.0); MEAN CORPUSCULAR VOLUME 89.7 fL (80.0-94.0); PLATELET 321 x1000/uL (130-400); RED BLOOD CELL COUNT 3.48 mill/uL (4.7-6.1); RED CELL DISTRIBUTION WIDTH 14.8 % (11.6-14.6)
[2022-04-22 16:00] VITALS: BP 106/66
[2022-04-22 16:53] VITALS: BP 106/66
[2022-04-22 20:36] LABS: CHLORIDE 103 mEq/L (98-107)
== END 2022-04-22 17:35 | DRG 871 ==
LOC: ER 13:46 → EDBEDREQ 16:48 → MICUSO 18:39 → EDBEDREQ 18:45 → EDBEDREQSVC 18:45 → EDBEDREQTM 18:45 → 5EST 04-15 11:02 → 6EST 04-21 12:10
PROVIDERS: ADMIT Internal Medicine; ATTEND Internal Medicine
DX: A41.9 Sepsis, unspecified organism (principal); G93.41 Metabolic encephalopathy; I62.02 Nontraumatic subacute subdural hemorrhage; I48.20 Chronic atrial fibrillation, unspecified; I50.32 Chronic diastolic (congestive) heart failure; E87.1 Hypo-osmolality and hyponatremia; J44.1 Chronic obstructive pulmonary disease with (acute) exacerbation; R64 Cachexia; Z68.1 Body mass index [BMI] 19.9 or less, adult; F03.90 Unspecified dementia, unspecified severity, without behavioral disturbance, psychotic disturbance, mood disturbance, and anxiety; F41.9 Anxiety disorder, unspecified; R33.9 Retention of urine, unspecified; I11.0 Hypertensive heart disease with heart failure; Z20.822 Contact with and (suspected) exposure to COVID-19; Z78.1 Physical restraint status; Z79.899 Other long term (current) drug therapy; Z93.1 Gastrostomy status
CPT/HCPCS: 36415; 70553; 71045; 80048; 80053; 81003; 82140; 82962; 83036; 83605; 83735; 84100; 84145; 84484; 85025; 85027; 87426; 93005; 93306; 99291; A6261; A9577; C9803; J0282; J1815; J2060; J2270; J2543; J3490; J7030; J7060; J7070; A4315

== ENCOUNTER 2022-06-28 11:00 | Inpatient (IN) | payer BC, MEDICAID ==
[~2022-06-28] VITALS: Ht 177.8 cm; Wt 63.5 kg
[2022-06-28 11:30] LABS: BG BASE EXCESS 2.5 mmol/L (-2.0-2.0); BG CARBOXYHEMOGLOBIN 0.3 % (0.5-1.5); BG DEOXYHEMOGLOBIN 4.1 % (0.0-5.0); BG FRACTION INSPIRED OXYGEN 21; BG HCO3 ACT 26.3 mmol/L (22.0-26.0); BG METHEMOGLOBIN 0.3 % (0.0-1.5); BG OXYGEN SATURATION 95.9 % (92.0-98.5); BG OXYHEMOGLOBIN 95.3 % (94.0-97.0); BG PCO2 37.7 mmHg (35.0-45.0); BG PH 7.461 (7.350-7.450); BG PO2 74.9 mmHg (75.0-100.0); BG SAMPLE SITE RIGHT BRACHIAL; BG TOTAL HEMOGLOBIN 11.1 g/dL (12.0-18.0); BG VENT MODE ROOM AIR
[2022-06-28 11:46] LABS: BASOPHILS % 0.3 % (0.0-2.0); EOSINOPHILS % 6.6 % (0.0-5.0); HEMATOCRIT. 32.4 % (42.0-52.0); HEMOGLOBIN. 10.6 g/dL (14.0-18.0); LYMPHOCYTES % 16.4 % (20.0-50.0); MEAN CORPUSCULAR HEMOGLOBIN 29.3 pg (28.0-32.0); MEAN CORPUSCULAR VOLUME 89.1 fL (80.0-94.0); MEAN PLATELET VOLUME 7.8 fl (7.4-10.4); MONOCYTES % 5.2 % (2.0-8.0); NEUTROPHILS % 71.5 % (40.0-76.0); PLATELET 343 x1000/uL (130-400); RED BLOOD CELL COUNT 3.63 mill/uL (4.7-6.1); RED CELL DISTRIBUTION WIDTH 14.1 % (11.6-14.6)
[2022-06-28 11:56] LABS: CHLORIDE 104 mEq/L (98-107)
[2022-06-28 12:35] LABS: CLARITY URINE TURBID (CLEAR); COLOR URINE DARK YELLOW (YELLOW); KETONES URINE NEGATIVE (NEGATIVE); LEUKOCYTE ESTERASE URINE 3+ (NEGATIVE); NITRITE URINE NEGATIVE (NEGATIVE); OCCULT BLOOD URINE 1+ (NEGATIVE); PH URINE >=9.0 (4.5-8.0); PROTEIN URINE 2+ (NEGATIVE); SPECIFIC GRAVITY URINE 1.023 (1.005-1.030); UROBILINOGEN URINE 0.2 E.U./dL (0.2-1.0)
[2022-06-28] MEDS ORDERED: CEFTRIAXONE 1 G PREMIX 50 ML IV ONE (13:15)
[2022-06-28 22:46] VITALS: BP 105/69
[2022-06-29] VITALS: BP 104/64
[2022-06-29] MEDS ORDERED: CEFTRIAXONE 1 G PREMIX 50 ML IV SCH (01:30)
[2022-06-29 04:00] VITALS: BP 114/66
[2022-06-29 08:00] VITALS: BP 103/66
[2022-06-29] MEDS: CEFTRIAXONE 1,000 MG in DEXTROSE 5% WATER 50 ML IV SCH (10:13)
[2022-06-29] MEDS: PANTOPRAZOLE 40MG DR TABLET PO SCH (10:13)
[2022-06-29 12:00] VITALS: BP 106/70
[2022-06-29] MEDS: LISINOPRIL 2.5MG TABLET PO SCH (13:00)
[2022-06-29] MEDS: DILTIAZEM HCL 60MG TABLET PO SCH ×2 (13:00→18:00)
[2022-06-29] MEDS ORDERED: DOCUSATE SODIUM 100MG CAPSULE PO SCH (13:00)
[2022-06-29] MEDS: SODIUM CHLORIDE 0.45% 1,000 ML IV SCH (13:15)
[2022-06-29 16:00] VITALS: BP 106/70
[2022-06-29] MEDS ORDERED: IPRATROPIUM/ALBUTEROL 0.5-3(2.5)MG/3ML NEB NEB SCH (17:00)
[2022-06-29] MEDS: FAMOTIDINE 20MG TABLET PO SCH (18:15)
[2022-06-29 20:00] VITALS: BP 108/65
[2022-06-30] VITALS: BP 100/64
[2022-06-30 04:00] VITALS: BP 112/70
[2022-06-30] MEDS: DILTIAZEM HCL 60MG TABLET PO SCH ×4 (05:53→18:00)
[2022-06-30 06:19] LABS: BASOPHILS % 0.4 % (0.0-2.0); EOSINOPHILS % 2.4 % (0.0-5.0); HEMATOCRIT. 30.6 % (42.0-52.0); HEMOGLOBIN. 10.2 g/dL (14.0-18.0); LYMPHOCYTES % 9.6 % (20.0-50.0); MEAN CORPUSCULAR HEMOGLOBIN 29.8 pg (28.0-32.0); MEAN CORPUSCULAR VOLUME 89.2 fL (80.0-94.0); MEAN PLATELET VOLUME 8.3 fl (7.4-10.4); NEUTROPHILS % 82.6 % (40.0-76.0); PLATELET 320 x1000/uL (130-400); RED BLOOD CELL COUNT 3.43 mill/uL (4.7-6.1); RED CELL DISTRIBUTION WIDTH 14.3 % (11.6-14.6)
[2022-06-30 07:31] LABS: CHLORIDE 106 mEq/L (98-107)
[2022-06-30 07:42] LABS: HDL CHOLESTEROL 29 mg/dL (40-59); LDL CHOLESTEROL 58 mg/dL (5-100)
[2022-06-30 08:00] VITALS: BP_SYST 101; BP_SYST 114; BP_DIAS 57; BP_DIAS 67
[2022-06-30] MEDS: LISINOPRIL 2.5MG TABLET PO SCH (10:39)
[2022-06-30] MEDS: DOCUSATE SODIUM SUGAR FREE 100MG/10ML UDC PO SCH (10:39)
[2022-06-30] MEDS: PANTOPRAZOLE 40MG DR TABLET PO SCH (10:39)
[2022-06-30] MEDS: FAMOTIDINE 20MG TABLET PO SCH (10:39)
[2022-06-30 12:00] VITALS: BP 118/66
[2022-06-30] MEDS: SODIUM CHLORIDE 0.45% 1,000 ML IV SCH (14:03)
[2022-06-30] MEDS: CEFTRIAXONE 1,000 MG in DEXTROSE 5% WATER 50 ML IV SCH (14:20)
[2022-06-30 16:00] VITALS: BP 103/56
[2022-06-30 20:00] VITALS: BP 110/64
[2022-07-01] VITALS: BP_SYST 109; BP_SYST 155; BP_DIAS 61; BP_DIAS 86
[2022-07-01 04:00] VITALS: BP 111/53
[2022-07-01] MEDS: DILTIAZEM HCL 60MG TABLET PO SCH ×4 (05:44→18:00)
[2022-07-01 08:00] VITALS: BP_SYST 110; BP_SYST 125; BP_DIAS 56; BP_DIAS 61
[2022-07-01] MEDS: LISINOPRIL 2.5MG TABLET PO SCH (09:00)
[2022-07-01] MEDS: CEFTRIAXONE 1,000 MG in DEXTROSE 5% WATER 50 ML IV SCH (11:19)
[2022-07-01] MEDS: DOCUSATE SODIUM SUGAR FREE 100MG/10ML UDC PO SCH (11:19)
[2022-07-01] MEDS: FAMOTIDINE 20MG TABLET PO SCH (11:20)
[2022-07-01 12:00] VITALS: BP 125/61
[2022-07-01 16:00] VITALS: BP 112/54
[2022-07-01 20:00] VITALS: BP 115/59
[2022-07-02] VITALS: BP 115/60
[2022-07-02] MEDS: SODIUM CHLORIDE 0.45% 1,000 ML IV SCH ×2 (02:05→12:46)
[2022-07-02 04:00] VITALS: BP 117/63
[2022-07-02] MEDS: DILTIAZEM HCL 60MG TABLET PO SCH ×4 (06:23→18:00)
[2022-07-02 08:00] VITALS: BP 94/48
[2022-07-02] MEDS: LISINOPRIL 2.5MG TABLET PO SCH (09:00)
[2022-07-02] MEDS: CEFTRIAXONE 1,000 MG in DEXTROSE 5% WATER 50 ML IV SCH (09:23)
[2022-07-02] MEDS: DOCUSATE SODIUM SUGAR FREE 100MG/10ML UDC PO SCH (09:23)
[2022-07-02] MEDS: FAMOTIDINE 20MG TABLET PO SCH (09:23)
[2022-07-02 12:00] VITALS: BP 102/58
[2022-07-02] MEDS ORDERED: LIDOCAINE HCL 1% 10 MG/ML 10ML VIAL ONE (13:19)
[2022-07-02 16:00] VITALS: BP 111/69
[2022-07-02 20:00] VITALS: BP 115/64
[2022-07-03] VITALS: BP 91/61
[2022-07-03 04:00] VITALS: BP 120/67
[2022-07-03] MEDS: DILTIAZEM HCL 60MG TABLET PO SCH ×2 (06:00)
[2022-07-03] MEDS: ALBUTEROL (0.083%) 2.5MG/3ML NEB HHN SCH ×2 (07:33→10:09)
[2022-07-03] MEDS: IPRATROPIUM BROMIDE (0.02%) 0.5MG/2.5ML NEB HHN SCH ×2 (07:33→10:09)
[2022-07-03] MEDS ORDERED: SODIUM BICARBONATE 8.4% 1 MEQ/ML 50ML SYR IV ONE ×2 (07:46)
[2022-07-03] MEDS ORDERED: ATROPINE SULFATE 1MG/10ML SYR ONE (07:46)
[2022-07-03] MEDS ORDERED: SODIUM CHLORIDE 0.9% 10ML VIAL ONE (07:46)
[2022-07-03] MEDS ORDERED: EPINEPHRINE 0.1MG/ML (1:10,000) 10ML SYR ONE ×3 (07:46)
[2022-07-03] MEDS ORDERED: CALCIUM CHLORIDE 1GM/10ML SYR IV ONE (07:46)
[2022-07-03 08:00] VITALS: BP 111/66
[2022-07-03] MEDS: FAMOTIDINE 20MG TABLET PO SCH (09:19)
[2022-07-03] MEDS: LISINOPRIL 2.5MG TABLET PO SCH (09:19)
[2022-07-03] MEDS: DOCUSATE SODIUM SUGAR FREE 100MG/10ML UDC PO SCH (09:20)
[2022-07-03] MEDS: CEFTRIAXONE 1,000 MG in DEXTROSE 5% WATER 50 ML IV SCH (09:21)
== END 2022-07-03 11:40 | DRG 689 ==
LOC: ER 11:00 → 6EST 16:50 → EDBEDREQTM 17:10 → EDBEDREQ 17:10 → 6EST 22:25
PROVIDERS: ADMIT Internal Medicine; ATTEND Internal Medicine
PROC: 0BH17EZ Insertion of Endotracheal Airway into Trachea, Via Natural or Artificial Opening (ICD-10-PCS; principal; 2022-07-03)
PROC: 5A12012 Performance of Cardiac Output, Single, Manual (ICD-10-PCS; 2022-07-03)
PROC: 02HV33Z Insertion of Infusion Device into Superior Vena Cava, Percutaneous Approach (ICD-10-PCS; 2022-07-03)
PROC: B548ZZA Ultrasonography of Superior Vena Cava, Guidance (ICD-10-PCS; 2022-07-03)
DX: N39.0 Urinary tract infection, site not specified (principal); I62.03 Nontraumatic chronic subdural hemorrhage; G93.40 Encephalopathy, unspecified; E87.1 Hypo-osmolality and hyponatremia; E87.20 Acidosis, unspecified; I46.9 Cardiac arrest, cause unspecified; D64.9 Anemia, unspecified; I11.0 Hypertensive heart disease with heart failure; I48.91 Unspecified atrial fibrillation; I50.9 Heart failure, unspecified; R32 Unspecified urinary incontinence; Z74.01 Bed confinement status; Z20.822 Contact with and (suspected) exposure to COVID-19
CPT/HCPCS: 31500; 36415; 36600; 71045; 80048; 80053; 80061; 81003; 82375; 82805; 82962; 83605; 83880; 84484; 85025; 87186; 87426; 87804; 92950; 93005; 94640; 99285; A6261; C9803; J0461; J0696; J3490; J7060